=== PATIENT | female | born 1945 | race Caucasian/White ===

== ENCOUNTER 2020-04-29 11:38 | Emergency (ER) | payer MEDICARE, OTHER, SELFPAY ==
--- NOTE | 2020-04-29 11:43 | ED.GENADULT ---
HPI - General Adult General Chief complaint: Upper Respiratory Infection Stated complaint: difficulty breathing Time Seen by Provider: 04/29/20 12:00 Source: patient and RN notes reviewed Mode of arrival: ambulatory Limitations: no limitations History of Present Illness HPI narrative: This is a 75 years old female presents to the office for an evaluation of difficulty breathing for two weeks. Associated with feeling weak. She did not want to come in for check up due to COVID. She drove her self here. She is a smoker. Denies history of CAD, CHF, PE, CVA. Related Data Home Medications Medication Instructions Recorded Confirmed acetaminophen-codeine 1 tablet PO Q6H PRN 04/29/20 04/29/20 buspirone 5 mg PO QAM 04/29/20 04/29/20 celecoxib [Celebrex] 200 mg PO BID 04/29/20 04/29/20 cyanocobalamin (vitamin B-12) 1,000 mcg SUBCUT EVERY OTHER DAY 04/29/20 04/29/20 gabapentin 100 mg PO TID 04/29/20 04/29/20 levothyroxine 100 mcg PO DAILY 04/29/20 04/29/20 melatonin 3 mg PO HS PRN 04/29/20 04/29/20 metoprolol tartrate 25 mg PO BID 04/29/20 04/29/20 mirabegron [Myrbetriq] 25 mg PO Q24H 04/29/20 04/29/20 omega [id number]-buz-ehi-fish oil [Fish Oil] 1 cap PO DAILY 04/29/20 04/29/20 pantoprazole 40 mg PO QAM 04/29/20 04/29/20 potassium chloride [Klor-Con 10] 10 meq PO DAILY 04/29/20 04/29/20 risperidone 1 mg PO HS 04/29/20 04/29/20 sertraline 25 mg PO DAILY 04/29/20 04/29/20 tizanidine 2 mg PO Q8H PRN 04/29/20 04/29/20 torsemide 20 mg PO QAM 04/29/20 04/29/20 tramadol 50 mg PO Q6H PRN 04/29/20 04/29/20 venlafaxine 100 mg PO BID 04/29/20 04/29/20 Allergies Allergy/AdvReac Type Severity Reaction Status Date / Time codeine AdvReac Unknown Other Verified 04/29/20 12:51 Review of Systems Review of Systems: Narrative: CONSTITUTIONAL: Denies fever EYES: Denies visual changes ENT: Denies congestion. Hard to hear; hearing aids. CARDIOVASCULAR: Denies chest pain, palpitation RESPIRATORY: Denies cough. Reports difficulty breathing. GASTROINTESTINAL: Denies abdominal pain, nausea, vomiting SKIN: Denies rash MUSCULOSKELETAL:Reports chronic back pain NEUROLOGIC: Reports dizziness/lightheaded All other systems reviewed are negative, except as documented in HPI. [facility] Past Medical History Medical History (Updated 04/29/20 @ 12:56 by MARTY Vickers) Chronic back pain HTN (hypertension) HX: breast cancer Hypothyroid Social History Social History (Updated 04/29/20 @ 12:20 by MARTY Vickers) Smoking status: Current every day smoker Comments At time of signature, I agree with nursing past medical, surgical, social and family history. There is no relevant family history pertinent to the presenting complaint. Exam Narrative: Exam Narrative: GENERAL: This is a well-developed patient, ill but not in apparent distress. EYES: PERRL. Sclera clear/white. Vision is grossly intact. EARS: External ears normal, earring aids noticed. Hearing grossly intact. NECK: Neck supple, non-tender without lymphadenopathy, masses or thyromegaly. NO JVD noted. CARDIOVASCULAR: Regular rate and rhythm without murmurs, gallops, or rubs. RESPIRATORY: Tachypnea, diminished breath sound. Breath sounds equal bilaterally. No tripod. No caynotic. GASTROINTESTINAL: Abdomen soft, non-tender, nondistended. Bowel sounds are active. No hepato-splenomegaly, or palpable masses. No guarding. SKIN: calmy, intact with no suspicious lesions or rash, good texture and turgor. NEURO: awake, alert, and oriented to person, place and time. There were no obvious focal neurologic abnormalities. Steady gait EXTREMITIES: Normal range of motion. Trace edematous noted in lower extremities near ankles. [place] Coma Scale Eye Opening: Spontaneous 4 [place] Coma Scale Motor: Obeys Commands 6 [place] Coma Scale Verbal: Oriented 5 Course Vital Signs Vital signs: Vital Signs Temperature 98.7 F 04/29/20 11:46 Pulse Rate 65 04/29/20 11:46 Respiratory Rate 20 04/29/20 11:46
[2020-04-29 11:46] VITALS: BP 77/51; PULSE 65; RESP 20; TEMP 37.1; O2SAT 100
[2020-04-29 11:52] VITALS: BP 80/60
--- NOTE | 2020-04-29 12:09 | ECG_ITS ---
Measurements Intervals [place] Rate: 66 P: -41 OR: 181 QRS: 21 QRSD: 102 T: 53 QT: 422 QTc: 443 Interpretive Statements SINUS RHYTHM LOW QRS VOLTAGE- DIFFUSE LEADS BORDERLINE ST-T WAVE ABNORMALITY- ANT/INF LEADS BASELINE ARTIFACT- II, III, AVL, AVF BORDERLINE ECG Electronically Signed On 04-29-2020 13:45:58 CDT by Rj Woo D.O.
[2020-04-29 12:10] VITALS: BP 70/40
== END 2020-04-29 12:10 | disposition short-term general hospital (02) ==
PROVIDERS: Emergency Provider Nurse Practitioner; PCP Internal Medicine
DX: R06.00 Dyspnea, unspecified (principal); I10 Essential (primary) hypertension; E03.9 Hypothyroidism, unspecified; F17.200 Nicotine dependence, unspecified, uncomplicated; Z85.3 Personal history of malignant neoplasm of breast
CPT/HCPCS: 93005; 99215; G0463